=== PATIENT | female | born 1975 | race Caucasian/White ===

== ENCOUNTER → 2016-09-24 | Emergency (ER) | payer OTHER ==
[~2016-09-24] VITALS: Ht 170.2 cm; Wt 106.8 kg
[~2016-09-24] MED LIST: ACCOLATE 220 MG/1 TA PO; ALEVE 220MG220 MG PO; GENTAMICIN I40 MG/ML NS; KLONOPIN 0.5MG0.5 MG PO; LYRICA 75MG CAP75 MG PO; MYRBETR25MG PO; PROVENTIL0.09 MG/A1 IH; RT ADVAIR 528 DISKUS IH; SEASONIQUE1 TAB PO; ZOLOFT 100MG100 MG PO; ZYRTEC 10MG10 MG PO
[2016-09-24 15:31] VITALS: BP 123/65; PULSE 102; TEMP 99
== END ==
LOC: COL.ER 15:30
DX: S91.211A Laceration without foreign body of right great toe with damage to nail, initial encounter (principal); W22.8XXA Striking against or struck by other objects, initial encounter; Y92.009 Unspecified place in unspecified non-institutional (private) residence as the place of occurrence of the external cause